=== PATIENT | male | born 1990 | race Caucasian/White ===

== ENCOUNTER 2018-05-24 14:19 | Emergency (ER) | payer OTHER ==
--- NOTE | 2018-05-24 14:43 | EDPHY ---
H & P Stated Complaint: Bilat lower leg swelling and discomfort x 1 day. Recent travel to [place] - Personal History Current Tetanus Diphtheria and Acellular Pertussis (TDAP): Yes Tetanus Vaccine Date: within 10 years - Medical/Surgical History Hx Asthma: No Hx Chronic Respiratory Disease: No Hx Diabetes: No Hx Cardiac Disease: No Hx Renal Disease: No Hx Cirrhosis: No Hx Alcoholism: No Hx HIV/AIDS: No Hx Splenectomy or Spleen Trauma: No Other PMH: Denies - Social History Smoking Status: Never smoked Time Seen by Provider: 05/24/18 14:26 HPI/ROS: Chief Complaint: Leg pain and swelling HPI: 28-year-old male's presenting with 1 day of bilateral calf and foot pain and swelling. Patient returned home from [place] last night and had been sitting on an aircraft for many hours. His left leg might be a little bit worse when the right but feels that both are swollen and uncomfortable. No chest pain or shortness of breath. No history of DVT. No family history of blood clotting disorders. No other medical problems. No fevers or chills. No nausea or vomiting. ROS: 10 systems were reviewed and were negative except those elements noted in the HPI. PMH: Denies Social History: No smoking, occasional alcohol, no recreational drug use Family History: non-contributory Physical Exam: Gen: Awake, Alert, No Distress HEENT: Nose: no rhinorrhea Eyes: PERRLA, EOMI Mouth: Moist mucosa Neck: Supple, no JVD Chest: nontender, lungs clear to auscultation Heart: S1, S2 normal, no murmur Abd: Soft, non-tender, no guarding Back: no CVA tenderness, no midline tenderness Ext: Moderate edema, left calf measures are 35.5 cm, right calf measures 34.5 cm, mild diffuse calf tenderness, no erythema, 2+ dorsalis pedis pulses, capillary refills less than 2 sec Skin: no rash Neuro: CN II-XII intact, Sensation grossly intact, Strength 5/5 in bilateral upper and lower extremities (Saul Sampson) Constitutional: Initial Vital Signs Temperature (C) 36.5 C 05/24/18 14:25 Heart Rate 65 05/24/18 14:25 Respiratory Rate 16 05/24/18 14:25 Blood Pressure 133/73 H 05/24/18 14:25 O2 Sat (%) 95 12/16/18 14:25 O2 Delivery Mode Room Air Allergies/Adverse Reactions: No Known Allergies Allergy (Verified 05/24/18 14:25) Home Medications: Medication Instructions Recorded Doxycycline Hyclate 05/24/18 Medical Decision Making ED Course/Re-evaluation: 28-year-old male presenting with bilateral lower extremity edema right greater than left. Minimal tenderness, no erythema. Other than recent international travel he has no risk factors for DVT. He has a for low risk on the Wells criteria. Will order a D-dimer for risk stratification. Patient signed out to Dr. Huffman pending D-dimer results (Saul Sampson) - Data Points Laboratory Results: 05/24/18 14:56 POC Sodium 140 mEq/L mEq/L (135-145) POC Potassium 3.6 mEq/L mEq/L (3.3-5.0) POC Chloride 107.0 mEq/L mEq/L (97-110) POC Total CO2 30 mEq/L mEq/L (22-31) POC BUN 12 mg/dL mg/dL (7-23) POC Creatinine 1.1 mg/dL mg/dL (0.7-1.3) POC Glucose 92 mg/dL mg/dL (70-100) POC Calcium 9.4 mg/dL mg/dL (8.5-10.4) Point of Care Test Results: Chemistry 05/24/18 14:56 POC Sodium 140 mEq/L mEq/L (135-145) POC Potassium 3.6 mEq/L mEq/L (3.3-5.0) POC Chloride 107.0 mEq/L mEq/L (97-110) POC Total CO2 30 mEq/L mEq/L (22-31) POC BUN 12 mg/dL mg/dL (7-23) POC Creatinine 1.1 mg/dL mg/dL (0.7-1.3) POC Glucose 92 mg/dL mg/dL (70-100) POC Calcium 9.4 mg/dL mg/dL (8.5-10.4) Departure - Departure Disposition: Home, Routine, Self-Care Clinical Impression: Leg edema Condition: Good Instructions: Leg Edema (ED) Additional Instructions: Your blood test showed no risk for blood clot. Over the next few days, elevate your legs when possible, however it is still important that you walk around and keep good circulation Consider wearing compression socks if you are going to be standing or traveling for prolonged time Referrals: Fang Ku, DO [Primary Care Provider] - As per Instructions
[2018-05-24 17:03] VITALS: BP 117/62
== END 2018-05-24 15:58 | disposition home or self-care (01) ==
LOC: CED 14:19
DX: R60.0 Localized edema (principal); M79.661 Pain in right lower leg; M79.662 Pain in left lower leg
CPT/HCPCS: 80048-PO